=== PATIENT | female | born 1955 | race Caucasian/White ===

== ENCOUNTER 2017-03-13 21:32 | Emergency (ER) | payer OTHER ==
[~2017-03-13] VITALS: Ht 157.5 cm; Wt 82.0 kg
[2017-03-13 21:34] VITALS: Ht 157.5 cm; Wt 82.0 kg
[2017-03-13] MEDS ORDERED: ONDANSETRON 4 MG INJ IV STA (22:06)
[2017-03-13 22:40] LABS: BASOPHILS % 0.8 % (0.0-2.0); EOSINOPHILS # 0.1 10^3/ul (0.0-0.5); EOSINOPHILS % 2.2 % (0.0-7.0); HEMATOCRIT 40.8 % (37.0-47.0); HEMOGLOBIN 13.9 g/dl (12.0-16.0); LYMPHOCYTES # 2.4 10^3/ul (0.8-2.9); LYMPHOCYTES % 47.6 % (15.0-51.0); MEAN CORPUSCULAR HEMOGLOBIN 32.3 pg (29.0-33.0); MEAN CORPUSCULAR HGB CONC 34.1 g/dl (32.0-37.0); MEAN CORPUSCULAR VOLUME 94.7 fl (82.0-101.0); MEAN PLATELET VOLUME 9.9 fl (7.4-10.4); MONOCYTE # 0.5 10^3/ul (0.3-0.9); MONOCYTES % 9.4 % (0.0-11.0); PLATELET COUNT 208 10^3/UL (140-415); RED BLOOD COUNT 4.31 10^6/ul (4.20-5.40); RED CELL DISTRIBUTION WIDTH 12.5 % (11.5-14.5)
[2017-03-13 22:52] LABS: ADD UMIC YES; UR ASCORBIC ACID NEGATIVE (NEGATIVE); UR BACTERIA FEW /HPF (NONE SEEN); UR BILIRUBIN (Dip) NEGATIVE (NEGATIVE); UR BLOOD (Dip) 1+ mg/dL (NEGATIVE); UR CLARITY CLEAR (CLEAR); UR COLOR YELLOW (YELLOW); UR GLUCOSE (Dip) NEGATIVE (NEGATIVE); UR KETONES (Dip) NEGATIVE (NEGATIVE); UR LEUKOCYTE ESTERASE (Dip) NEGATIVE Leu/ul (NEGATIVE); UR NITRITE (Dip) NEGATIVE (NEGATIVE); UR RBC 1 /HPF (0-5); UR SPECIFIC GRAVITY (Dip) 1.015 (1.003-1.030); UR SQUAMOUS EPITHELIAL CELL FEW /HPF (FEW); UR TOTAL PROTEIN (Dip) NEGATIVE (NEGATIVE); UR UROBILINOGEN (Dip) NEGATIVE (NEGATIVE)
[2017-03-13 23:17] LABS: ALANINE AMINOTRANSFERASE 43 IU/L (13-69); ALBUMIN 4.5 g/dl (3.3-4.9); ALBUMIN/GLOBULIN RATIO 1.36; ALKALINE PHOSPHATASE 108 IU/L (42-121); ANION GAP 14 (8-16); ASPARTATE AMINO TRANSFERASE 30 IU/L (15-46); BILIRUBIN,INDIRECT 0.2 mg/dl (0-1.1); BILIRUBIN,TOTAL 0.2 mg/dl (0.2-1.3); BLOOD UREA NITROGEN 13 mg/dl (7-20); CALCIUM 9.2 mg/dl (8.4-10.2); CARBON DIOXIDE 26 mmol/L (21-31); CHLORIDE 103 mmol/L (97-110); CREATININE 0.62 mg/dl (0.44-1.00); GLUCOSE 106 mg/dl (70-220); POTASSIUM 3.5 mmol/L (3.5-5.1); SODIUM 139 mmol/L (135-144); TOTAL PROTEIN 7.8 g/dl (6.1-8.1)
--- NOTE | 2017-03-13 23:28 | RADRPT ---
PROCEDURE: CT HEAD WITHOUT CONTRAST: CLINICAL INDICATION: 61 years of age, female, headache and vomiting . COMPARISON: None TECHNIQUE: CT of the head was performed without IV contrast. Dose information: The estimated radiation dose (CTDIvol mGy) for each series in this exam is 44.4 . The estimated cumulative dose (DLP mGy-cm) is 630 . FINDINGS: Parenchyma: Negative for acute intracranial hemorrhage, significant mass effect or midline shift. There are nonspecific patchy low density changes in the supratentorial deep white matter that are no nspecific but likely due to chronic small vessel ischemia. Minimal atherosclerotic calcification of the cavernous carotid arteries. Ventricles and extra-axial spaces: Normal for age. Visualized paranasal sinuses: Clear. Mastoid air cells: Clear. Bones: No focal abnormality. Additional comment: None. IMPRESSION: 1. Negative for acute intracranial hemorrhage or significant mass effect. 2. Nonspecific patchy low density changes in the supratentorial deep white matter are nonspecific b ut likely due to chronic small vessel ischemia. If there is concern for recent ischemia, consider MR I brain for further evaluation. 3. Mild intracranial atherosclerosis. RPTAT: HCTS Physician Nader Date Time Electronically viewed and signed by Physician Nader on 03/13/2017 23:27 /
[2017-03-13 23:30] VITALS: BP 159/66; PULSE 52; RESP 18; TEMP 97.7
[2017-03-13 23:32] LABS: TROPONIN-I < 0.012 ng/ml (0.00-0.12)
[2017-03-13] MEDS ORDERED: MECL-77 PO (23:38)
--- NOTE | 2017-03-13 23:38 | ERD ---
ER Documentation Chief Complaint Date/Time DATE: 03/13/17 TIME: 23:36 Chief Complaint dizziness,nausea HPI This is a 61-year-old female presents to the emergency room for evaluation of dizziness and nausea. The patient describes her dizziness as a room spinning sensation worse with rapid change in position. She states her symptoms have been present for 1 days duration. She states it started when she woke up this morning however she continued about her daily activities and continue cleaning the house. She states she came to the ER today for evaluation of her dizziness. She denies any chest pain or palpitations associated with this but does say that she vomited once. ROS All systems reviewed and are negative except as per history of present illness. Allergies Allergies: Coded Allergies: No Known Allergy (Unverified , 03/13/17) PMhx/Soc History of Surgery: No Anesthesia Reaction: No Hx Neurological Disorder: Yes (EPILEPSY) Hx Respiratory Disorders: No Hx Cardiac Disorders: Yes (HTN, HIGH CHOLESTEROL) Hx Psychiatric Problems: No Hx Miscellaneous Medical Probl: No Hx Alcohol Use: No Hx Substance Use: No Hx Tobacco Use: No Smoking Status: Never smoker Physical Exam Vitals Vital Signs Date Time Temp Pulse Resp B/P Pulse Ox O2 Delivery O2 Flow Rate FiO2 03/13/17 23:30 97.7 52 18 159/66 99 Room Air 03/13/17 21:34 97.8 63 18 204/88 99 Physical Exam INITIAL VITAL SIGNS: Reviewed by me GENERAL: The patient is well developed and appropriate for usual state of health in no apparent distress HEENT: Pupils equal, round, and reactive to light. EOMI. There is no scleral icterus. NECK: C-spine is soft and supple, there is no meningismus. There is no cervical lymphadenopathy. LUNGS: Clear to auscultation bilaterally. There are no rales, wheezes or rhonchi. HEART: Regular rate and rhythm, no murmurs, clicks, rubs or gallops. ABDOMEN: Soft, non-tender, non-distended. There are bowel sounds in all four quadrants. No rebound or guarding. EXTREMITIES: There is no peripheral cyanosis or edema. No focal swelling or erythema. NEUROLOGICAL: The patient moves all four extremities with 5/5 strength. Cranial nerves II - XII are intact. Normal gait. Alert and oriented SKIN: There is no apparent rash or petechiae. HEME/LYMPHATIC: There is no evidence of excessive bruising or lymphedema. PSYCHIATRIC: The patient does not appear anxious or depressed. Result Diagram: 03/13/17219903/13/172199 Results 24 hrs Laboratory Tests Test 03/13/17 22:00 03/13/17 22:15 White Blood Count 5.010^3/ul Red Blood Count 4.3110^6/ul Hemoglobin 13.9g/dl Hematocrit 40.8% Mean Corpuscular Volume 94.7fl Mean Corpuscular Hemoglobin 32.3pg Mean Corpuscular Hemoglobin Concent 34.1g/dl Red Cell Distribution Width 12.5% Platelet Count 85893^3/UL Mean Platelet Volume 9.9fl Neutrophils % 40.0% Lymphocytes % 47.6% Monocytes % 9.4% Eosinophils % 2.2% Basophils % 0.8% Nucleated Red Blood Cells % 0.0/100WBC Neutrophils # 2.010^3/ul Lymphocytes # 2.410^3/ul Monocytes # 0.510^3/ul Eosinophils # 0.110^3/ul Basophils # 0.010^3/ul Nucleated Red Blood Cells # 0.010^3/ul Sodium Level 139mmol/L Potassium Level 3.5mmol/L Chloride Level 103mmol/L Carbon Dioxide Level 26mmol/L Anion Gap 14 Blood Urea Nitrogen 13mg/dl Creatinine 0.62mg/dl Glucose Level 106mg/dl Calcium Level 9.2mg/dl Total Bilirubin 0.2mg/dl Direct Bilirubin 0.00mg/dl Indirect Bilirubin 0.2mg/dl Aspartate Amino Transf (AST/SGOT) 30IU/L Alanine Aminotransferase (ALT/SGPT) 43IU/L Alkaline Phosphatase 108IU/L Troponin I < 0.012ng/ml Total Protein 7.8g/dl Albumin 4.5g/dl Globulin 3.30g/dl Albumin/Globulin Ratio 1.36 Lipase 99U/L Urine Color YELLOW Urine Clarity CLEAR Urine pH 6.0 Urine Specific [place] 1.015 Urine Ketones NEGATIVEmg/dL Urine Nitrite NEGATIVEmg/dL Urine Bilirubin NEGATIVEmg/dL Urine Urobilinogen NEGATIVEmg/dL Urine Leukocyte Esterase NEGATIVELeu/ul Urine Microscopic RBC 1/HPF Urine Microscopic WBC 3/HPF Urine Squamous Epithelial Cells FEW/HPF Urine Bacteria FEW/HPF Urine Hemoglobin 1+mg/dL Urine Glucose NEGATIVEmg/dL Urine Total Protein NEGATIVEmg/dl Current Medications Medications (Trade) Dose Ordered Sig/Shadi Route PRN Reason Start Time Stop Time Status Last Admin Dose Admin Ondansetron HCl (Zofran Inj) 4 mg ONCE STAT IV 03/13/17 22:06 03/13/17 22:10 DC 03/13/17 22:15 Procedures/MDM EKG: Rate/Rhythm: [Normal Sinus Rhythm] QRS, ST, T-waves: [No changes consistent w/ acute ischemia] Impression: [No evidence of ischemia or arrhythmia] CT brain without: 1. Negative for acute intracranial hemorrhage or significant mass effect. 2. Nonspecific patchy low density changes in the supratentorial deep white matter are nonspecific but likely due to chronic small vessel ischemia. If there is concern for recent ischemia, consider MRI brain for further evaluation. 3. Mild intracranial atherosclerosis. This 61-year-old female presents to the ER for evaluation of dizziness. When I evaluated this patient she was hemodynamically stable and nontoxic appearing. She did have one episode of vomiting prior to me evaluating this patient. She describes her dizziness as a room spinning sensation. On exam the patient had no gross abnormalities. Her neuro exam was intact. The patient was a relating ER without difficulty. Lab work was obtained including EKG which is nonischemic. Troponin is negative. CT of the brain is also within normal limits. The patient was given meclizine and will be discharged at this time with instructions to follow with her primary care physician or return to the ER if her symptoms worsen Departure Diagnosis: Primary Impression: Dizziness Condition: Stable NOREEN COLVIN DO Mar 13, 2017 23:38
== END 2017-03-13 23:40 | disposition home or self-care (01) ==
LOC: E/R 21:32
DX: R42 Dizziness and giddiness (principal); I10 Essential (primary) hypertension; R11.0 Nausea
CPT/HCPCS: 36415; 70450; 80053; 81001; 83690; 84484; 85025; 93005; 96374; Z7502

== ENCOUNTER 2019-03-30 08:41 | Emergency (ER) | payer OTHER ==
[~2019-03-30] VITALS: Ht 157.5 cm; Wt 79.9 kg
[~2019-03-30 08:41] MED LIST: IBUP-1542 PO; MECL-77 PO; MECL12.574 PO; ONDA4TAB14 PO
[2019-03-30 08:45] VITALS: BP 185/79; PULSE 63; RESP 18; Ht 157.5 cm; Wt 79.9 kg
[2019-03-30] MEDS ORDERED: ONDANSETRON (ODT) 4 MG TAB ODT STA (09:39)
== END 2019-03-30 10:48 | disposition home or self-care (01) ==
LOC: FTE 08:41
DX: R42 Dizziness and giddiness (principal); I10 Essential (primary) hypertension; E03.9 Hypothyroidism, unspecified
CPT/HCPCS: 93005; Z7502; Z7610